=== PATIENT | male | born 1995 | race Two or more races ===

== ENCOUNTER 2019-12-12 14:23 | Emergency (ER) | payer OTHER ==
[2019-12-12] MEDS ORDERED: Sodium Chloride 0.9% 1,000 ML IV ONE (14:38)
[2019-12-12 15:24] LABS: ANION GAP 11.9 mEq/L (7-13); CHLORIDE,CL 103 mmol/L (98-107); SODIUM,NA 139 mmol/L (136-145)
--- NOTE | 2019-12-12 15:37 | EDM.PDOC ---
ED HPI GENERAL MEDICAL PROBLEM - General Chief Complaint: General Stated Complaint: DIZZINESS WEAKNESS FAINTED Time Seen by Provider: 12/12/19 15:10 Source of Information: Reports: Patient, RN, RN Notes Reviewed History Limitations: Reports: No Limitations - History of Present Illness INITIAL COMMENTS - FREE TEXT/NARRATIVE: Patient presents to ER with complaint of muscle weakness, body aches, headache, dizziness. Patient states decreased appetite since yesterday, states he has been trying to drink fluids. Denies any fever chills, nausea, vomiting, diarrhea. Patient states he has chronic insomnia, and did have a head CT done on November 25, 2019. Patient denies any visual disturbances. States he felt he fainted earlier today, but was laying down. Denies falling or hitting his head or any trauma. Onset: Gradual Occipital Head Pain Score (Numeric/FACES): 1 - Related Data Allergies Allergy/AdvReac Type Severity Reaction Status Date / Time No Known Allergies Allergy Verified 12/12/19 15:22 Home Meds: Home Meds . [No Known Home Meds] 12/12/19 [History] Past Medical History - Past Health History Medical/Surgical History: Denies Medical/Surgical History HEENT History: Reports: None Cardiovascular History: Reports: None Respiratory History: Reports: None Gastrointestinal History: Reports: None Genitourinary History: Reports: None Musculoskeletal History: Reports: None Neurological History: Reports: None Psychiatric History: Reports: None Endocrine/Metabolic History: Reports: None Hematologic History: Reports: None Immunologic History: Reports: None Oncologic (Cancer) History: Reports: None Dermatologic History: Reports: None - Infectious Disease History Infectious Disease History: Reports: None - Past Surgical History Head Surgeries/Procedures: Reports: None Social & Family History - Family History Family Medical History: Noncontributory - Tobacco Use Smoking Status *Q: Never Smoker Second Hand Smoke Exposure: No - Caffeine Use Caffeine Use: Reports: Soda - Recreational Drug Use Recreational Drug Use: No ED ROS GENERAL - Review of Systems Review Of Systems: Comprehensive ROS is negative, except as noted in HPI. ED EXAM, GENERAL - Physical Exam Exam: See Below Exam Limited By: No Limitations General Appearance: Alert, WD/WN, No Apparent Distress Eye Exam: Bilateral Eye: EOMI, Normal Inspection Ears: Normal External Exam, Hearing Grossly Normal Nose: Normal Inspection Throat/Mouth: Normal Inspection, Normal Voice, No Airway Compromise Head: Atraumatic, Normocephalic Neck: Normal Inspection, Supple, Non-Tender, Full Range of Motion Respiratory/Chest: No Respiratory Distress, Lungs Clear, Normal Breath Sounds, No Accessory Muscle Use, Chest Non-Tender Cardiovascular: Normal Peripheral Pulses, Regular Rate, Rhythm, No Edema, No Gallop, No JVD, No Murmur, No Rub Peripheral Pulses: 2+: Radial (L), Radial (R) GI/Abdominal: Normal Bowel Sounds, Soft, Non-Tender (Male) Exam: Deferred Rectal (Males) Exam: Deferred Back Exam: Normal Inspection, Full Range of Motion, NT Extremities: Normal Inspection, Normal Range of Motion, Non-Tender, Normal Capillary Refill, No Pedal Edema Neurological: Alert, Oriented, CN II-XII Intact, Normal Cognition, Normal Gait, Normal Reflexes, No Motor/Sensory Deficits Psychiatric: Normal Affect, Normal Mood Skin Exam: Warm, Dry, Intact, Normal Color, No Rash Lymphatic: No Adenopathy Course - Vital Signs Last Recorded V/S: Last Vital Signs Temp 98.3 F 12/12/19 15:02 Pulse 74 12/12/19 15:02 Resp 18 12/12/19 15:02 BP 126/67 12/12/19 15:02 Pulse Ox 100 12/12/19 15:02 - Orders/Labs/Meds Orders: Active Orders 24 hr Category Date Time Status CULTURE BLOOD [BC] Stat Lab 12/12/19 14:49 Received CULTURE BLOOD [BC] Stat Lab 12/12/19 15:51 Received CULTURE STREP A CONFIRMATION [RM] Stat Lab 12/12/19 15:08 Results STREP SCRN A RAPID W CULT CONF [RM] Stat Lab 12/12/19 15:08 Results UA RFX GERMAN AND CULT IF INDIC [URIN] Stat Lab 12/12/19 16:56 Ordered Blood Culture x2 Reflex Set [OM.PC] Stat Oth 12/12/19 14:38 Ordered Isolation [COMM] Routine Oth 12/12/19 14:38 Active Labs: Laboratory Tests 12/12/19 12/12/19 12/12/19 Range/Units 14:49 14:49 14:49 WBC 6.8 (5.0-10.0) 10^3/uL RBC 5.02 (4.6-6.2) 10^6/uL Hgb 15.2 (14.0-18.0) g/dL Hct 44.0 (40.0-54.0) % MCV 87.6 (80-100) fL MCH 30.3 (27.0-34.0) pg MCHC 34.5 (33.0-35.0) g/dL Plt Count 244 (150-450) 10^3/uL Neut % (Auto) 63.5 (42.2-75.2) % Lymph % (Auto) 26.5 (20.5-50.1) % Daggett % (Auto) 9.1 H (2-8) % Eos % (Auto) 0.6 L (1.0-3.0) % Baso % (Auto) 0.3 (0.0-1.0) % D-Dimer, Quantitative < 100 (0-400) ng/mL Sodium 139 (136-145) mmol/L Potassium 3.9 (3.5-5.1) mmol/L Chloride 103 (98-107) mmol/L Carbon Dioxide 28 (21-32) mmol/L Anion Gap 11.9 (7-13) mEq/L BUN 9 (7-18) mg/dL Creatinine 0.88 (0.70-1.30) mg/dL Est Cr Clr Drug Dosing 129.54 mL/min Estimated GFR (MDRD) > 60 BUN/Creatinine Ratio 10.2 (No establ ref range) Glucose 99 (74-99) mg/dL Lactic Acid (0.4-2.0) mmol/L Calcium 9.0 (8.5-10.1) mg/dL Total Bilirubin 0.6 (0.2-1.0) mg/dL AST 17 (15-37) U/L ALT 22 (16-63) U/L Alkaline Phosphatase 71 (46-116) U/L C-Reactive Protein 0.2 (0.0-0.9) mg/dL Total Protein 8.2 (6.4-8.2) g/dL Albumin 4.3 (3.4-5.0) g/dL Globulin 3.9 Albumin/Globulin Ratio 1.1 SARS CoV-2 RNA Rapid CARYN (NEGATIVE) 12/12/19 12/12/19 Range/Units 14:49 14:56 WBC (5.0-10.0) 10^3/uL RBC (4.6-6.2) 10^6/uL Hgb (14.0-18.0) g/dL Hct (40.0-54.0) % MCV (80-100) fL MCH (27.0-34.0) pg MCHC (33.0-35.0) g/dL Plt Count (150-450) 10^3/uL Neut % (Auto) (42.2-75.2) % Lymph % (Auto) (20.5-50.1) % Daggett % (Auto) (2-8) % Eos % (Auto) (1.0-3.0) % Baso % (Auto) (0.0-1.0) % D-Dimer, Quantitative (0-400) ng/mL Sodium (136-145) mmol/L Potassium (3.5-5.1) mmol/L Chloride (98-107) mmol/L Carbon Dioxide (21-32) mmol/L Anion Gap (7-13) mEq/L BUN (7-18) mg/dL Creatinine (0.70-1.30) mg/dL Est Cr Clr Drug Dosing mL/min Estimated GFR (MDRD) BUN/Creatinine Ratio (No establ ref range) Glucose (74-99) mg/dL Lactic Acid 0.9 (0.4-2.0) mmol/L Calcium (8.5-10.1) mg/dL Total Bilirubin (0.2-1.0) mg/dL AST (15-37) U/L ALT (16-63) U/L Alkaline Phosphatase (46-116) U/L C-Reactive Protein (0.0-0.9) mg/dL Total Protein (6.4-8.2) g/dL Albumin (3.4-5.0) g/dL Globulin Albumin/Globulin Ratio SARS CoV-2 RNA Rapid CARYN Negative (NEGATIVE) Rapid strep: Negative Influenza A: Negative Influenza B: Positive Rapid COVID-19: Negative Meds: Medications Discontinued Medications Generic Name Dose Route Start Last Admin Trade Name Freq PRN Reason Stop Dose Admin Sodium Chloride 1,000 mls @ 999 mls/hr 12/12/19 14:38 12/12/19 16:00 Normal Saline IV 12/12/19 15:38 999 mls/hr .BOLUS ONE Administration Departure - Departure Time of Disposition: 17:05 Disposition: Home, Self-Care 01 Condition: Fair Clinical Impression: Influenza B - Discharge Information *PRESCRIPTION DRUG MONITORING PROGRAM REVIEWED*: No *COPY OF PRESCRIPTION DRUG MONITORING REPORT IN PATIENT ANISHA: No Instructions: Influenza, Adult, [id number] Forms: ED Department Discharge Additional Instructions: Rx: Tamiflu Drink plenty of fluids May use Tylenol and/or ibuprofen as directed for pain and fever Stay home until symptom free for 24 hours Sepsis Event Note (ED) - Evaluation Sepsis Screening Result: No Definite Risk - Focused Exam Vital Signs: Vital Signs Temp Pulse Resp BP Pulse Ox 12/12/19 15:02 98.3 F 74 18 126/67 100 - My Orders Last 24 Hours: My Active Orders 12/12/19 14:38 Blood Culture x2 Reflex Set [OM.PC] Stat Isolation [COMM] Routine 12/12/19 14:49 CULTURE BLOOD [BC] Stat 12/12/19 15:08 CULTURE STREP A CONFIRMATION [RM] Stat STREP SCRN A RAPID W CULT CONF [RM] Stat 12/12/19 15:51 CULTURE BLOOD [BC] Stat 12/12/19 16:56 UA RFX GERMAN AND CULT IF INDIC [URIN] Stat - Assessment/Plan Last 24 Hours: My Active Orders 12/12/19 14:38 Blood Culture x2 Reflex Set [OM.PC] Stat Isolation [COMM] Routine 12/12/19 14:49 CULTURE BLOOD [BC] Stat 12/12/19 15:08 CULTURE STREP A CONFIRMATION [RM] Stat STREP SCRN A RAPID W CULT CONF [RM] Stat 12/12/19 15:51 CULTURE BLOOD [BC] Stat 12/12/19 16:56 UA RFX GERMAN AND CULT IF INDIC [URIN] Stat
== END 2019-12-12 17:30 | disposition home or self-care (01) ==
LOC: DL.ED 14:23
DX: J10.1 Influenza due to other identified influenza virus with other respiratory manifestations (principal); Z20.828 Contact with and (suspected) exposure to other viral communicable diseases
CPT/HCPCS: 36415; 80053; 81003; 83605; 85025; 85379; 86140; 87040; 87081; 87430; 87635; 87804; 99284; J7030; 99283; U0002